=== PATIENT | male | born 1955 | race Caucasian/White ===

== ENCOUNTER 2018-02-09 06:49 | Day surgery (SDC) | payer OTHER ==
[~2018-02-09] VITALS: Ht 180.3 cm; Wt 77.1 kg
[2018-02-09] MEDS ORDERED: CEFAZOLIN 1 GM IVPB PREMIX 50 ML IV ONE (07:00)
[2018-02-09] MEDS ORDERED: POLYMYXIN 500,000/BACIT.10,000 UNITS in NS IRR 1 L IR ONE (08:29)
[2018-02-09] MEDS ORDERED: ONDANSETRON HCL 4 MG/2 ML VIAL IVP PRN (10:15)
[2018-02-09] MEDS ORDERED: fentaNYL CITRATE/PF 100 MCG/2 ML AMP IVP PRN ×2 (10:15)
[2018-02-09] MEDS ORDERED: D5/0.45 NS 1,000 ML IV SCH (10:29)
[2018-02-09] MEDS ORDERED: HYDROmorphone 1 MG INJ. 1 MG/ML AMPUL IVP PRN (10:30)
[2018-02-09] MEDS ORDERED: HYDROcodone/ACETAMIN 5-325 MG TAB (NORCO/ VICODIN) PO PRN ×2 (10:30)
[2018-02-09] MEDS ORDERED: ONDANSETRON HCL 4 MG/2 ML VIAL IVP ONE (10:35)
[2018-02-09] MEDS ORDERED: NS IRRIG SOLN 1000 ML IR ONE (10:35)
[2018-02-09] MEDS ORDERED: PROPOFOL 200MG/ 20ML VIAL (DIPRIVAN) IV ONE (10:35)
[2018-02-09] MEDS ORDERED: LR 1,000 ML IV.SOLN IV ONE (10:35)
[2018-02-09] MEDS ORDERED: fentaNYL CITRATE/PF 100 MCG/2 ML AMP IVP ONE (10:35)
[2018-02-09] MEDS ORDERED: MIDAZOLAM HCL 5 MG/ML VIAL (VERSED) IV ONE (10:35)
[2018-02-09] MEDS ORDERED: DEXAMETHASONE SOD PHOSPHATE 4 MG/ML VIAL IVP ONE (10:35)
[2018-02-09] MEDS ORDERED: SEVOFLURANE 15 MIN GAS INH ONE (10:35)
[2018-02-09] MEDS ORDERED: HYDROcodone/ACETAMIN 5-325 MG TAB (NORCO/ VICODIN) ONE (11:49)
[2018-02-09 12:38] VITALS: BP_SYST 112
== END 2018-02-09 13:15 | disposition home or self-care (01) ==
LOC: SMU 06:49 → SDS 06:49
PROVIDERS: ATTEND Colon & Rectal Surgery
DX: K40.90 Unilateral inguinal hernia, without obstruction or gangrene, not specified as recurrent (principal); E78.5 Hyperlipidemia, unspecified; E03.9 Hypothyroidism, unspecified; J44.9 Chronic obstructive pulmonary disease, unspecified; Z98.890 Other specified postprocedural states; R06.02 Shortness of breath; Z80.0 Family history of malignant neoplasm of digestive organs; D47.3 Essential (hemorrhagic) thrombocythemia; Z79.899 Other long term (current) drug therapy
CPT/HCPCS: 49505; C1781; J0690; J1100; J2250; J2405; J2704; J3010; J7120